=== PATIENT | male | born 1995 | race Caucasian/White ===

== ENCOUNTER 2019-12-29 18:43 | Emergency (ER) | payer BC ==
[2019-12-29 18:55] VITALS: BP 129/91; PULSE 56; TEMP 98.2; BMI 29.9
== END 2019-12-29 19:11 | disposition home or self-care (01) ==
LOC: JER 18:43
DX: Z48.02 Encounter for removal of sutures (principal)
CPT/HCPCS: 99282-25

== ENCOUNTER 2021-10-23 19:59 | Emergency (ER) | payer BC ==
[2021-10-23 20:20] VITALS: PULSE 50; TEMP 97.6; BMI 30.8
[2021-10-23] MEDS ORDERED: TETRACAINE 0.5% HCL 0.6ML DROPPER.BOTTLE OD ONE (20:21)
[2021-10-23] MEDS ORDERED: TETRACAINE 0.5% OPHTH SOLN 2 ML BOTTLE ONE (20:32)
[2021-10-23] MEDS ORDERED: FLUORESCEIN NA 1 EA STRIP ONE (20:32)
[2021-10-23 21:44] VITALS: BP 123/76
== END 2021-10-23 22:46 | disposition home or self-care (01) ==
LOC: JER 19:59
DX: S05.52XA Penetrating wound with foreign body of left eyeball, initial encounter (principal); W45.8XXA Other foreign body or object entering through skin, initial encounter
CPT/HCPCS: 70480-TC; 99284-25